=== PATIENT | female | born 1985 | race Caucasian/White ===

== ENCOUNTER 2018-06-02 10:14 | Emergency (ER) | payer OTHER ==
[2018-06-02] MEDS ORDERED: LORazepam 1 MG TAB PO ONE (10:23)
[2018-06-02] MEDS ORDERED: OXYCODONE/APAP 5/325 TAB PO ONE (10:23)
--- NOTE | 2018-06-02 10:30 | EDPHY ---
H & P Stated Complaint: r wrist inj - Personal History LMP (Females 10-55): 1-7 Days Ago Current Tetanus Diphtheria and Acellular Pertussis (TDAP): Yes - Medical/Surgical History Hx Asthma: No Hx Chronic Respiratory Disease: No Hx Diabetes: No Hx Cardiac Disease: No Hx Renal Disease: No Hx Cirrhosis: No Hx Alcoholism: No Hx HIV/AIDS: No Hx Splenectomy or Spleen Trauma: No Other PMH: denies - Social History Smoking Status: Never smoked Time Seen by Provider: 06/02/18 10:19 HPI/ROS: CHIEF COMPLAINT: Right wrist pain post fusion HISTORY OF PRESENT ILLNESS:32-year-old female [id number] was hiking on icey terrain this morning, slipped and fell onto her outstretched right hand and felt immediate pain noted dorsal deformity. No paresthesia. No proximal pain or injury. No head injury. No syncope. PRIMARY CARE PROVIDER: In [place] REVIEW OF SYSTEMS: 10 systems reviewed and negative with the exception of the elements mentioned in the history of present illness PAST MEDICAL/SURGICAL HISTORY: no anticoagulant use, no relevant medical/ surgical history SOCIAL HISTORY: denies alcohol use at time of incident PHYSICAL EXAM 1) GENERAL: Well-developed, well-nourished, alert and oriented. Appears anxious , crying, hyperventilating 2) HEAD: Normocephalic, atraumatic 3) HEENT: Pupils equal, round, reactive to light bilaterally. Negative Horners. Nasopharynx, oropharynx, clear. No deformity or angulation of nose. No septal hematoma. No rhinorrhea. No oral trauma. Ears bilaterally with normal tympanic membranes. No hemotympanum. No fluid or blood in the external auditory canal. No raccoon eyes. No Medina sign. Teeth are normally aligned with no gross malocclusion, TMJ bilaterally nontender, facial bones nontender including the zygomatic arch, maxilla mandible. 4) NECK: No cervical collar is on. Posterior cervical spine is nontender, no stepoff, no effusion. Full range of motion which does not elicit any midline cervical spine pain, no posterior midline tenderness, no step-off. 5) LUNGS: Clear to auscultation bilaterally, no wheezes, no rhonchi, no retractions. No obvious signs of trauma. No chest wall pain. No flaring, no grunting. Moving symmetrically. No crepitus. 6) HEART: [Regular rate and rhythm, 7) ABDOMEN: No guarding, no rebound, no focal tenderness, no peritoneal signs, no signs of trauma, no ecchymosis 8) MUSCULOSKELETAL: Dorsal deformity noted with no tenting of tissue to the right wrist. Soft compartments. Normal coloration. 9) SKIN: intact 10) VASCULAR: pulses and cap refill present are brisk 11) NEUROLOGIC: Radial, ulnar, median nerve function intact with no deficits appreciated on exam DIFFERENTIAL DIAGNOSIS: In no particular order including but not limited to fracture, sprain, strain, dislocation (Mahin Richardson) Constitutional: Initial Vital Signs Temperature (C) 36.5 C 06/02/18 10:15 Heart Rate 112 H 06/02/18 10:15 Respiratory Rate 18 06/02/18 10:15 Blood Pressure 115/70 06/02/18 10:15 O2 Sat (%) 97 06/02/18 10:15 O2 Delivery Mode Room Air Allergies/Adverse Reactions: No Known Allergies Allergy (Unverified 06/02/18 10:15) Home Medications: Medication Instructions Recorded oxyCODONE/APAP 5/325 [Percocet 1 tab PO Q6 #10 tab 06/02/18 5/325] Medical Decision Making - Diagnostics Imaging Results: Imaging Impressions Wrist X-Ray 06/02/18 10:23 Impression: Impacted comminuted dorsally angulated intra-articular distal right radius and ulnar fractures. Wrist X-Ray 06/02/18 11:24 Impression: Interval reduction and splint placement of comminuted radial and ulnar fractures as described. Imaging Impressions Wrist X-Ray 06/02/18 10:23 Impression: Impacted comminuted dorsally angulated intra-articular distal right radius and ulnar fractures. Wrist X-Ray 06/02/18 11:24 Impression: Interval reduction and splint placement of comminuted radial and ulnar fractures as described. Images reviewed myself (Mahin Richardson) Procedures: Procedure: Fracture reduction Indication: Fracture of the distal radius Indications, risks and benefits discussed with patient and consent obtained. A hematoma block of 0.5% bupivicaine placed by myself. Traction and countertraction applied achieving a visible and palpable reduction. The area was splinted with a sugar-tong splint. After application of the splint I returned and re-examined the patient. The splint was adequately immobilizing the joint and distal to the splint the patient's circulation and sensation were intact. Patient shows no signs of compartment syndrome. Was given orthopedic precautions. Procedure: Splint A sling was applied by ER prosthetics lab technician. After application of the splint I returned and re-examined the patient. The splint was adequately immobilizing the joint and distal to the splint the patient's circulation and sensation were intact. Patient shows no signs of compartment syndrome. Was given orthopedic precautions. (Mahin Richardson) ED Course/Re-evaluation: 10:50 a.m.: Hematoma block administered by myself. Patient has been given oral Ativan however remains quite anxious, hyperventilating. She will be given intranasal Ativan before proceeding to reduction. 11:36 a.m.: Re-evaluation after reduction. Discussed the imaging results with the patient. There is an intra-articular component of her fracture. No evidence of median nerve damage on exam. She will need follow-up with orthopedics and has been given this referral information. She has been informed that she may necessitate ORIF for rest to be determined by orthopedic surgeon she consult with. She lives in [place]. She may follow up with orthopedic surgeon in [place] but also given referral to on-call orthopedic surgeon in [place].. Given copies of her x-rays, analgesia prescription and my usual customary orthopedic precautions instructions. She tolerated the reduction well. Care of patient under supervision of primary supervising physician Dr De Jesus with whom I discussed case. (Mahin Richardson) Other Provider: PHYSICIAN DOCUMENTATION: The patient was evaluated and managed by the Physician Case Coordinator. My co- signature indicates that I have reviewed this chart and I agree with the findings and plan of care as documented. I am the secondary supervising physician. (Arun De Jesus) - Data Points Medications Given: Discontinued Medications Lorazepam (Ativan) 1 mg PO EDNOW ONE Stop: 06/02/18 10:24 Last Admin: 06/02/18 10:33 Dose: 1 mg Lorazepam (Ativan Injection) 1 mg NASAL EDNOW ONE Stop: 06/02/18 10:59 Last Admin: 06/02/18 11:05 Dose: 1 mg Oxycodone/Acetaminophen (Percocet 5/325) 1 tab PO EDNOW ONE Stop: 06/02/18 10:24 Last Admin: 06/02/18 10:33 Dose: 1 tab Departure - Departure Disposition: Home, Routine, Self-Care Clinical Impression: Hiking on level or elevated terrain Fall from slipping on ice Qualifiers: Encounter type: initial encounter Qualified Code(s): W00.9XXA - Unspecified fall due to ice and snow, initial encounter Right wrist fracture Qualifiers: Encounter type: initial encounter Fracture type: closed Qualified Code(s): S62.101A - Fracture of unspecified carpal bone, right wrist, initial encounter for closed fracture Condition: Good Instructions: Oxycodone/Acetaminophen (By mouth), Wrist Fracture in Adults (ED) Additional Instructions: Return to the ER immediately if you experience discoloration, have worsening pain, numbness, tingling, or any other symptoms that concern you. If you received x-rays in the emergency department today, be advised, that ligamentous , tendon, muscular, and other non-bony injury cannot be fully ruled out. Try to keep your affected extremity elevated above the level of your chest, and keep cold packs on the affected area, for the next 48 hours. Referrals: Luis Zafar MD [Medical Doctor] - 2-3 days, call for appt. Prescriptions: oxyCODONE/APAP [Percocet ] 1 tab PO Q6 #10 tab
[2018-06-02] MEDS ORDERED: LORazepam 2 MG/ML INJ NASAL ONE (10:58)
[2018-06-02 11:54] VITALS: BP 108/81
== END 2018-06-02 11:53 | disposition home or self-care (01) ==
DX: S52.571A Other intraarticular fracture of lower end of right radius, initial encounter for closed fracture (principal); S52.601A Unspecified fracture of lower end of right ulna, initial encounter for closed fracture; W00.0XXA Fall on same level due to ice and snow, initial encounter; Y93.01 Activity, walking, marching and hiking
CPT/HCPCS: A4565; J2060